=== PATIENT | male | born 1995 | race Caucasian/White ===

== ENCOUNTER 2017-03-10 11:19 | Outpatient (CLI) ==
--- NOTE | 2017-03-10 11:56 | DI ---
EXAM: Radiographs, left knee HISTORY: Left knee pain. COMPARISON: None available. TECHNIQUE: Four views. FINDINGS: Bone mineralization is normal. There is no fracture or dislocation. The joint spaces ar e maintained. No focal soft tissue abnormality is seen. IMPRESSION: No abnormality of the left knee.
== END 2017-03-10 11:20 | disposition home or self-care (01) ==
LOC: RAD 11:19
PROVIDERS: ATTEND Nurse Practitioner Family
DX: M25.562 Pain in left knee (principal); W11.XXXA Fall on and from ladder, initial encounter

== ENCOUNTER 2017-03-17 13:55 | Outpatient (CLI) ==
--- NOTE | 2017-03-18 11:09 | MRI ---
EXAM: MRI left knee without contrast. HISTORY: Pain left knee. Mainly medial. Knee swelling. Has improved. No left knee surgery. Fel l off ladder.. TECHNIQUE: Using a local extremity coil on a high field strength magnet multiplanar multisequence M RI was performed of the left knee without intravenous or intra-articular gadolinium contrast.. COMPARISON: Four view plain film examination right knee 03/10/2017.. FINDINGS: Within the medial compartment medial meniscus is intact without discrete surfacing menisc al tear. Medial compartment cartilage congruent without focal underlying subchondral edema. Within the lateral compartment lateral meniscus is intact without discrete surfacing meniscal tear. The lateral compartment cartilage congruent . There is confluent subchondral bone marrow edema/co ntusion over the posterior nonweight bearing lateral femoral condyle with questionable area of subch ondral fracture. Overlying plantaris muscle strain. There is a small focus of bone marrow edema/cont usion over the lateral wall of the lateral tibial plateau along the tibial side of the proximal left tibiofibular joint with non displaced small intra-articular fracture. Within the patellofemoral compartment the patella seated with intact patellar attachment of the medi al and lateral patellar retinaculum. Both the patellar and trochlear groove cartilage congruent wit hout focal underlying subchondral edema. Question low grade sprain medial patellofemoral ligament/m edial patellar retinaculum. Small left effusion. No osteochondral loose bodies. Intact anterior and posterior cruciate ligamen t fibers. Question low grade sprain ACL. The extensor mechanism is intact. No translation of the tibia with respect to the femur. Grade I I sprain proximal medial collateral ligament. The lateral collateral ligament complex intact as is the posterolateral corner. IMPRESSION: Subchondral bone marrow edema/contusion over the posterior nonweight bearing lateral fe moral condyle with questionable area subchondral fracture. Overlying muscle strain. Small focus of bone marrow edema/contusion over the lateral wall of the lateral tibial plateau along the tibial si de of the proximal left tibiofibular joint with nondisplaced small intra-articular fracture. Small left effusion. Low grade sprain medial patellofemoral ligament/medial patellar retinaculum. Grade I I sprain proxi mal medial collateral ligament. Low grade sprain ACL. Intact PCL. No translation of the tibia with respect to the femur. No discrete surfacing meniscal tear identified.
== END 2017-03-17 13:56 | disposition home or self-care (01) ==
LOC: RAD 13:55
PROVIDERS: ATTEND Nurse Practitioner Family
DX: M25.562 Pain in left knee (principal)